=== PATIENT | male | born 1945 | race Caucasian/White ===

== ENCOUNTER 2023-06-26 00:28 | Emergency (ER) | payer OTHER ==
[~2023-06-26] VITALS: Ht 172.7 cm; Wt 59.0 kg
[2023-06-26 00:51] LABS: BASOPHILS % (AUTO) 0.6 % (0.0-2.0); EOSINOPHILS # (AUTO) 0.2 K/uL (0.0-0.7); EOSINOPHILS % (AUTO) 2.4 % (0.0-7.0); HEMATOCRIT 33.7 % (36.7-47.1); HEMOGLOBIN 11.6 g/dL (12.5-16.3); LYMPHOCYTES # (AUTO) 0.5 K/uL (0.8-4.8); LYMPHOCYTES % (AUTO) 7.1 % (20.5-51.5); MEAN CORPUSCULAR HEMOGLOBIN 30.1 uug (23.8-33.4); MEAN CORPUSCULAR HGB CONC 35 g/dL (32.5-36.3); MEAN CORPUSCULAR VOLUME 87.4 fL (73.0-96.2); MONOCYTES # (AUTO) 0.5 K/uL (0.1-1.30); MONOCYTES % (AUTO) 7.5 % (0.0-11.0); NEUTROPHILS # (AUTO) 5.8 K/uL (1.8-8.9); NEUTROPHILS % (AUTO) 82.4 % (38.5-71.5); PLATELET COUNT (AUTO) 172 K/uL (152-348); RED BLOOD CELL COUNT(AUTO) 3.86 MIL/uL (4.06-5.63)
[2023-06-26 00:53] LABS: DIFFERENTIAL COMMENT 1
[2023-06-26] MEDS ORDERED: ACETAMINOPHEN 325 MG TABLET ONE (01:02)
[2023-06-26 01:03] LABS: CALCIUM 9.5 mg/dL (8.5-10.1); CARBON DIOXIDE 35 mmol/L (21-32); CHLORIDE 101 mmol/L (98-107); CREATININE 1.4 mg/dL (0.6-1.3); GLUCOSE 99 mg/dL (74-106); POTASSIUM 3.8 mmol/L (3.5-5.1); SODIUM SERUM 140 mmol/L (136-145); UREA NITROGEN, BLOOD 27 mg/dL (7-18)
[2023-06-26] MEDS: ACETAMINOPHEN 325 MG TABLET PO ONE (01:08)
[2023-06-26 01:09] LABS: ALANINE AMINOTRANSFERASE 19 U/L (16-63); ALBUMIN 2.9 g/dL (3.4-5.0); ALKALINE PHOSPHATASE 95 U/L (50-136); ASPARTATE AMINOTRANSFERASE 17 U/L (15-37); BILIRUBIN,TOTAL 0.5 mg/dL (0.2-1.0); MAGNESIUM 1.9 mg/dL (1.8-2.4); TOTAL PROTEIN, SERUM 6.8 g/dL (6.4-8.2)
[2023-06-26] MEDS ORDERED: FURO-152 PO (01:10)
[2023-06-26] MEDS ORDERED: ATOR10TA PO (01:10)
[2023-06-26] MEDS ORDERED: HYDR12.55 PO (01:10)
[2023-06-26 01:28] LABS: C-REACTIVE PROTEIN 3.59 mg/dL (0.00-0.30)
[2023-06-26] MEDS ORDERED: COLCHICINE 0.6 MG TABLET ONE (01:41)
[2023-06-26] MEDS: COLCHICINE 0.6 MG TABLET PO ONE (01:50)
[2023-06-26] MEDS: IV NORMAL SALINE 500 ML BAG IV ONE (02:05)
[2023-06-26 04:15] VITALS: O2SAT 95
== END 2023-06-26 04:30 | disposition short-term general hospital (02) ==
LOC: ER 00:30
DX: M79.605 Pain in left leg (principal); M79.604 Pain in right leg; E78.5 Hyperlipidemia, unspecified; Z79.899 Other long term (current) drug therapy; Z88.1 Allergy status to other antibiotic agents
CPT/HCPCS: 99285; 71045; 80053; 83880; 83735; 85025; 86140; 84484; 36415; 93005; J7040 ×2; A4606; A4663